=== PATIENT | male | born 1995 | race Caucasian/White ===

== ENCOUNTER → 2017-09-25 | Outpatient (CLI) | payer BC, OTHER ==
--- NOTE | 2017-09-26 10:03 | RADIOLOGY IMAGING REPORT ---
FACILITY: [facility] PATIENT NAME: ALISE CLAY : [id number] MR: [id number] V: [id number] EXAM DATE: ORDERING PHYSICIAN: YOSSI CHAHAL TECHNOLOGIST: Rosa Maria Power PROCEDURE:US RIGHT BREAST COMPARISON:None. INDICATIONS:RT BREAST MASS SINCE 05/2017 HAD DECREASED IN SIZE BUT PAINFUL FINDINGS: Today's Ultrasound was performed in the approximate 12 o'clock position of the Right breast in the periareolar region in the location of the patient's palpable findings. There appear to be several mildly prominent ducts surrounded by hypoechoic tissue although a discreet mass is not seen. This could represent a small area of inflammation or gynecomastia. Clinical follow-up recommended for patient's palpable finding. DIAGNOSTIC CATEGORY 2--BENIGN FINDING. RECOMMENDATIONS: CLINICAL EVALUATION. IMPRESSION: BIRADS 2: Benign finding Clinical follow-up recommended for patient's palpable finding in the Right breast as described above. Dictated by: Radha Bey M.D. on 09/25/2017 at 17:10 Transcribed by: CLAY on 09/26/2017 at 8:45 Approved by: Radha Bey M.D. on 09/26/2017 at 10:02 [facility]
== END ==
LOC: MAMO 02:19
PROVIDERS: ATTEND Emergency Medicine Sports Medicine
DX: N60.41 Mammary duct ectasia of right breast (principal)

== ENCOUNTER 2017-10-18 14:57 | Emergency (ER) | payer BC, OTHER ==
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
[2017-10-18] MEDS ORDERED: ESCI20TA38 PO (15:09)
[2017-10-18 15:51] LABS: PLATELET COUNT, AUTOMATED 264 K/uL (150-450)
[2017-10-18 16:51] VITALS: BP 146/103
== END 2017-10-18 17:29 ==
LOC: ER 15:03
DX: R45.851 Suicidal ideations (principal); F32.9 Major depressive disorder, single episode, unspecified
CPT/HCPCS: 36415; 80305; 80320; 80329; 81001; 82040; 82247; 82310; 82374; 82435; 82565; 82947; 83735; 84075; 84132; 84155; 84295; 84443; 84450; 84460; 84520; 85025; 99285

== ENCOUNTER 2017-10-18 17:21 | Inpatient (IN) | payer BC, OTHER ==
[~2017-10-18] VITALS: Ht 165.1 cm; Wt 60.3 kg
[~2017-10-18 17:21] MED LIST: ESCI20TA38 PO
[2017-10-18 17:39] VITALS: BP 140/84
[2017-10-18] MEDS ORDERED: MAG HYD/AL HYD/SIMETH 30ML UDC PO PRN (19:05)
[2017-10-18] MEDS ORDERED: ACETAMINOPHEN 325 MG TAB PO PRN (19:05)
[2017-10-18] MEDS: hydrOXYzine PAMOATE 25 MG CAP PO PRN (22:00)
[2017-10-19 06:36] VITALS: BP 112/64
[2017-10-19] MEDS: ESCITALOPRAM OXALATE 10 MG TAB PO SCH (08:08)
[2017-10-19 13:15] VITALS: BP 118/74
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
[2017-10-19 17:40] VITALS: BP 120/70
[2017-10-20 06:30] VITALS: BP 120/74
[2017-10-20] MEDS: ESCITALOPRAM OXALATE 10 MG TAB PO SCH (08:05)
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
[2017-10-20] MEDS ORDERED: ESCITALOPRAM OXALATE 10 MG TAB PO ONE (09:10)
[2017-10-20 14:20] VITALS: BP 122/72
[2017-10-20 20:18] VITALS: BP 132/78
[2017-10-20] MEDS: hydrOXYzine PAMOATE 25 MG CAP PO PRN (22:03)
[2017-10-21 05:27] VITALS: BP 145/90
[2017-10-21] MEDS: ESCITALOPRAM OXALATE 10 MG TAB PO SCH (08:10)
[2017-10-21 09:35] VITALS: BP 136/75
--- NOTE | 2017-10-21 11:17 | BHS Progress Note ---
[facility] - Subjective Progress Notes Subjective Patient reports suicidal thoughts are largely resolved, and will plan for discharge tomorrow. Patient will continue same medications on unit, and finish discharge planning today. Mood is improving, no para-suicidal behaviors on the unit, will continue treatment today. Patient interacting well with his father and his outpatient therapist on the phone during treatment team meeting today. Suicidal Ideation: Resolving Homicidal Ideation: None [facility] - Objective Physical Exam Vital Signs Vital Signs Date Time Temp Pulse Resp B/P (MAP) Pulse Ox O2 Delivery O2 Flow Rate FiO2 10/21/17 09:35 98.9 79 136/75 (95) 95 Room Air 10/21/17 05:27 15 Muscle Strength and Tone: WNL Gait and Station: Steady [facility] Medications Reviewed: Side Effects, Benefits of Medication, Risks Allergies Reviewed: Yes Mental Status Exam General Appearance: Casual, Well Groomed, Good Eye Contact, Cooperative, Polite , Good Interaction, No Unkept, No Tearful, No Psychomotor Agitation, No Psychomotor Retardation, No Bizarre Mannerisms, No Tics Speech: Clear, Spontaneous, Normal Rate, Normal Rhythm, Normal Volume, Normal Tone Mood: Dysthmic/Depressed (improving) Affect: Full and Appropriate, Calm, Sad, No Withdrawn, No Tearful, No Anxious, No Agitated Thought Process: Organized, Logical, Goal Directed, No Loose Associations, No Flight of Ideas Thought Content: No Suicidal Ideation (resolving), No Homicidal Ideation, No Delusions, No Auditory Halllucinations, No Visual Hallucinations, No Thought Broadcasting, No Ideas of Reference, No Obsessions, No Compulsions Sensorium: Clear Cognition: Alert & Oriented-Person, Alert & Oriented-Place, Alert & Oriented- Time, Xiupp-Gzjbnaeb-Nbvuqledo Memory: Immediate, Recent, Remote Intelligence: Average Insight Judgment: Intact, Appropriate, Good [facility] Assessment and Plan Iphj-vt-Xwag Encounter Date: Oct 21, 2017 Tvkv-[id number] Encounter Time: 10:00 [facility] Plan: Admit to Unit, Necessary Precautions, Individual/Group Therapy, Admin /Titrate Meds Multpiple Antipsychotics Used: No Problems: (1) Adjustment disorder with mixed anxiety and depressed mood Optional Permanent Comment: likely persisting depressive disorder, will continue trial of lexapro Last Edited By: Vel Cuenca on Oct 21, 2017 11:17 Status: Acute Condition 1. continue treatment. 2. likely discharge tomorrow. VEL CUENCA MD Oct 21, 2017 11:17
[2017-10-21 21:16] VITALS: BP 140/95
[2017-10-21] MEDS: hydrOXYzine PAMOATE 25 MG CAP PO PRN (21:41)
[2017-10-22 05:59] VITALS: BP 119/73
[2017-10-22] MEDS: ESCITALOPRAM OXALATE 10 MG TAB PO SCH (08:23)
[2017-10-22] MEDS ORDERED: LEVOTHYROXINE SOD 0.05 MG TAB PO SCH (10:40)
[2017-10-22] MEDS ORDERED: HYDR25CA13 PO (11:20)
[2017-10-22] MEDS ORDERED: POTASSIUM CHL 10 MEQ TABCR PO SCH (12:30)
[2017-10-22] MEDS ORDERED: GABAPENTIN 300 MG CAP PO SCH (14:00)
--- NOTE | 2017-10-23 16:17 | DISCHARGE SUMMARY ---
DATE OF ADMISSION: October 18, 2017 DATE OF DISCHARGE: October 22, 2017 The patient was seen on 22 Oct 2017 at approximately 0840 hours for note concerning this dictation. FINAL DIAGNOSES 1. Adjustment disorder with mixed anxiety and depressed mood. 2. Rule out persistent depressive disorder. 3. Relationship stressors. 4. Supportive family. REASON FOR ADMISSION This is a very polite, cooperative, 21-year-old male who was found to take an active role in his treatment while on the Behavioral Health Floor. Please see H and P for full details concerning admission. Patient was able to identify a multitude of stressors in his life, particularly involving a relationship breakup at time of admission which resulted in suicidal ideation. Patient also remains on Lexapro as prescribed by an outpatient provider. This was increased on the unit, and this may represent underlying persistent depressive disorder. Again, please refer to H and P for full details. Again, patient was found to take a very active role in his treatment, very polite, cooperative with staff and other patients. Patient exhibiting no parasuicidal behaviors on the unit and interacting well with family members. Patient was discharged to home. PHYSICAL EXAMINATION Please see emergency room note. Notable for: GENERAL: A 21-year-old depressed male. No acute physical distress. VITAL SIGNS: Temperature at 100 at time of admission, pulse 84, respiratory rate 16, blood pressure 159/103, and pulse oximetry 96 on room air. At time of discharge from [facility], vital signs indicated temperature 98.1, pulse 57, respiratory rate 15, blood pressure 119/73, and pulse oximetry 96 on room air. LABORATORY DATA Iron was found to be 63 on unit. TSH 0.85. RBC 6.35 and elevated. Hemoglobin and hematocrit elevated at 18.1 and 52.1. Chemistry panel unremarkable. Urinalysis unremarkable. Toxicology screen negative with an undetectable serum alcohol level. MENTAL STATUS EXAMINATION AT TIME OF DISCHARGE GENERAL APPEARANCE, BEHAVIOR, AND ATTITUDE: This is a very polite, cooperative , 21-year-old male, well groomed, making good eye contact. No bizarre mannerisms or tics. No periods of tearfulness. Interacting well with this provider and other treatment team staff. SPEECH: Within normal limits. Regular rate, rhythm, volume, and tone. MOOD: Described as improved and good. AFFECT: Full and mood congruent overall. THOUGHT PROCESSES: Logical, goal directed. No loose associations or flight of ideas. THOUGHT CONTENT: Free of auditory or visual hallucinations, ideas of reference , thought broadcasting, delusions, obsessions, compulsions. Patient adamantly denying suicidal or homicidal ideation. SENSORIUM: Clear. COGNITION: Alert and oriented to person, place, time, situation. MEMORY: Immediate, recent, remote estimated intact. INTELLIGENCE: Average based on interview. INSIGHT AND JUDGMENT: Considered grossly intact and appropriate for ongoing outpatient management. RESULTS OF TESTING IMAGING: None. LABORATORY DATA: See above. PSYCHOLOGICAL TESTING: Not done. CONSULTATIONS None. TREATMENT Patient received medications, participated in individual and group therapy. HOSPITAL COURSE Patient's outpatient dose of Lexapro, which was currently at 10 mg, was increased to 20 mg p.o. q.a.m. on the unit. Patient tolerated the procedure well. Patient also remained on Vistaril at 25 to 50 mg p.o. q.6 hours p.r.n. for anxiety and insomnia throughout his stay. Patient participated well in all individual and group therapy and took an active role in his treatment. CONDITION OF PATIENT ON DISCHARGE Stable, considered a minimal risk to himself or others and appropriate for ongoing outpatient care. DISPOSITION Patient discharged to home. He would follow up with outpatient services as scheduled concerning medication management and therapy. DISCHARGE MEDICATIONS 1. Lexapro 20 mg daily. 2. Vistaril 25 to 50 mg every six hours p.r.n. for anxiety and insomnia. Risks, benefits, and alternatives of above discharge were given as well as the crisis line should symptoms return. Verbal consent was given to proceed with above discharge plan by this competent patient as well as family members per phone present at time of discharge. VIKTOR
== END 2017-10-22 16:15 | disposition home or self-care (01) | DRG 882 ==
LOC: BHS 17:21
PROVIDERS: ADMIT Nurse Practitioner Psychiatric/Mental Health; ATTEND Nurse Practitioner Psychiatric/Mental Health
DX: F43.23 Adjustment disorder with mixed anxiety and depressed mood (principal); R45.851 Suicidal ideations; F34.1 Dysthymic disorder; Z63.0 Problems in relationship with spouse or partner; Z73.3 Stress, not elsewhere classified
CPT/HCPCS: 83540; 90853; Q0177

== ENCOUNTER 2018-01-28 20:55 | Emergency (ER) | payer BC ==
[~2018-01-28 20:55] MED LIST changes: +HYDR25CA13 PO
--- NOTE | 2018-01-28 21:00 | ER Report ---
History and Physical Time Seen By MD: 20:59 HPI/ROS CHIEF COMPLAINT: Depression HISTORY OF PRESENT ILLNESS: Patient is a 22-year-old male here with complaints of depression, superficial cutting of his left wrist to see if he would be able to commit suicide if he wanted to. Patient denies current suicidal ideation or wanting to harm others. Patient was admitted in September for suicidal ideation. He was treated in the past with Lexapro and is currently on fluoxetine for the past several months. Patient was feeling better and was followed by a therapist who also felt that he was improving and no longer needed therapy. Patient reports that over the past several days he has had increased depression and flat affect. He reports that he cut himself to see if he could if he wanted to. REVIEW OF SYSTEMS: Constitutional: No fever, no chills. Skin: No rashes, + superficial abrasion to wrist Neurological: No focal deficits Allergies: Coded Allergies: No Known Drug Allergies (Unverified , 01/28/18) Home Meds Reported Medications Fluoxetine Hcl (PROZAC) 40 Mg Capsule, 40 MG PO QDAY, CAPSULE 01/28/18 Hydroxyzine Pamoate (HYDROXYZINE PAMOATE) 25 Mg Capsule, 25 MG PO Q6H Y for ANXIETY/INSOMNIA, #120 CAPSULE 2 Refills 10/22/17 Discontinued Reported Medications Escitalopram Oxalate (LEXAPRO) 20 Mg Tablet, 20 MG PO QDAY, #30 TAB 2 Refills 10/18/17 Hx Smoking: No Smoking Status: Never Smoker Exposure to Second Hand Smoke?: No Hx Substance Use Disorder: No Hx Alcohol Use: Yes Constitutional Vital Sign - Last 24 Hours 01/28/18 01/28/18 01/28/18 01/28/18 20:58 21:08 21:25 21:49 Temp 98.1 Pulse 77 72 Resp 12 B/P (MAP) 156/88 (110) 156/88 129/79 (96) Pulse Ox 96 95 O2 Delivery Room Air 01/28/18 01/28/18 01/28/18 01/28/18 21:55 22:00 22:25 22:30 Pulse 72 77 B/P (MAP) 128/83 (98) 133/83 (100) Pulse Ox 95 95 O2 Delivery Room Air Room Air 01/28/18 01/28/18 01/28/18 22:35 23:00 23:05 Pulse 74 73 B/P (MAP) 131/66 (87) Pulse Ox 95 95 O2 Delivery Room Air Room Air Physical Exam General Appearance: The patient is alert, has no immediate need for airway protection and no signs of toxicity. NAD Eyes: Pupils equal and round no pallor or injection. Neurological: No focal neurological deficits Skin: Superficial abrasion to wrist Musculoskeletal: Extremities are nontender, nonswollen and have full range of motion. DIFFERENTIAL DIAGNOSIS: After history and physical exam differential diagnosis was considered for depression, suicidal ideation, medication side effect Medical Decision Making ED Course/Re-evaluation ED Course Patient is a 22-year-old male here with complaints of depression on fluoxetine with a prior history of inpatient admission for suicidal ideations. Patient denies suicidal ideation, plans of hurting other people. He did cut his wrist with a mild superficial abrasion. Patient has a strong support system and adamantly denies suicidal ideations at this time. I discussed the patient with behavioral health control systems technician who evaluated the patient and recommended outpatient follow-up with a therapist since the patient is not currently seen by a psychiatrist or therapist. Patient agreed with plan and contracted for safety. Patient was stable at time of discharge. Decision to Disposition Date: Jan 28, 2018 Decision to Disposition Time: 23:15 Depart Departure Latest Vital Signs Vital Signs Date Time Temp Pulse Resp B/P (MAP) Pulse Ox O2 Delivery O2 Flow Rate FiO2 01/28/18 23:05 73 95 Room Air 01/28/18 23:00 131/66 (87) 01/28/18 21:08 98.1 12 Impression: Primary Impression: Depression Condition: Improved Disposition: HOME OR SELF-CARE Patient Instructions: Depression (ED) Additional Instructions: Please follow up with outpatient psychiatry for medication adjustment and further therapy. Return promptly if you develop thoughts of harming your self or others CHAPITO FOURNIER DO Jan 28, 2018 21:00
[2018-01-28] MEDS ORDERED: FLUO40CA76 PO (21:08)
[2018-01-28 23:00] VITALS: BP 131/66
== END 2018-01-28 23:28 | disposition home or self-care (01) ==
LOC: ER 21:19
DX: F32.9 Major depressive disorder, single episode, unspecified (principal); Z79.899 Other long term (current) drug therapy
CPT/HCPCS: 99283